=== PATIENT | male | born 1965 | race Hispanic/Latino ===

== ENCOUNTER 2021-11-18 06:44 | Day surgery (SDC) | payer BC ==
[2021-11-14 14:03] LABS: BASOPHILS % (AUTO) 0.9 % (0.0-5.0); EOSINOPHILS % (AUTO) 2.9 % (0.0-8.0); HEMATOCRIT 45.2 % (42-54); LYMPHOCYTES % (AUTO) 32.5 % (21.0-51.0); MEAN CORPUSCULAR HEMOGLOBIN 29.8 pg (27.0-33.0); MEAN CORPUSCULAR HGB CONC 33.2 g/dL (32.0-36.0); MEAN CORPUSCULAR VOLUME 89.7 fL (79-99); MONOCYTES % (AUTO) 7.4 % (3.0-13.0); NEUTROPHILS % (AUTO) 55.9 % (40.0-77.0); PLATELET COUNT (AUTO) 273 K/uL (130-400); RED BLOOD CELL COUNT(AUTO) 5.04 MIL/uL (4.50-6.20); WHITE BLOOD COUNT (AUTO) 7.5 K/uL (4.8-10.8)
[2021-11-14 14:08] LABS: CREATININE 0.9 mg/dL (0.5-1.5); POTASSIUM 3.7 mmol/L (3.5-5.1)
[2021-11-14 14:09] LABS: APPEARANCE,URINE CLEAR (CLEAR); BILIRUBIN,URINE NEGATIVE (NEGATIVE); COLOR,URINE YELLOW (YELLOW); GLUCOSE, URINE (UA) >=1000 mg/dL (NEGATIVE); KETONES,URINE 15 mg/dL (NEGATIVE); LEUKOCYTE ESTERASE ,URINE NEGATIVE (NEGATIVE); NITRATE,URINE NEGATIVE (NEGATIVE); OCCULT BLOOD,URINE NEGATIVE (NEGATIVE); PROTEIN,URINE NEGATIVE (NEGATIVE); UROBILINOGEN,URINE 0.2 mg/dL (0.2-1.0)
[2021-11-14 14:14] LABS: INR 0.94 (0.85-1.15); PROTHROMBIN TIME 10.3 SEC (9.6-11.6)
[2021-11-14 14:16] LABS: PARTIAL THROMBOPLASTIN TIME 25.9 SEC (26.3-35.5)
[2021-11-14 14:33] LABS: BACTERIA,URINE Rare /HPF (None Seen); RBC,URINE 0-1 /HPF (0-1); WBC,URINE 0-1 /HPF (0-1)
[2021-11-14 14:34] LABS: SQUAMOUS EPITHELIAL CELL,UR Rare /HPF (0-2)
[2021-11-14 14:40] LABS: B-TYPE NATRIURETIC PEPTIDE < 5 pg/mL (0-100)
[2021-11-15 11:52] VITALS: BP 141/77
[2021-11-18] VITALS (8 sets, daily range): BP systolic 126–173; BP diastolic 81–90
[~2021-11-18] VITALS: Ht 172.7 cm; Wt 121.8 kg
[~2021-11-18 06:44] MED LIST: 0.9% NACL 500ML IV.SOLN 500 ML IV SCH; ASPI-1197 PO; CARV6.25 PO; CLOP75TA32 PO; DAPA10TA PO; DULA1.5P SQ; EZET10TA13 PO; HYDR25TA PO; ICOS1CAP PO; INSU100V12 SQ; LOSA100T58 PO; MELO-106 PO; METF-527 PO; MULT-1367 PO; NITR0.4T50 SL; OMEP40CA21 PO; ROSU20TA31 PO; SEMA3TAB4 PO
[2021-11-18] MEDS ORDERED: 0.9%NACL 1000ML 1,000 ML IV ONE (07:39)
[2021-11-18] MEDS ORDERED: NITROGLYCERIN 50MG VIAL ONE ×2 (09:47→11:04)
[2021-11-18] MEDS ORDERED: IOHEXOL 350 MG/ML 100ML INFUS..BTL IV ONE ×2 (09:47→11:04)
[2021-11-18] MEDS ORDERED: HEPARIN 10,000 UNIT/10ML (1,000 UNIT/ML) VIAL ONE ×2 (09:47→11:04)
[2021-11-18] MEDS ORDERED: SODIUM BICARB 50MEQ 50ML VIAL 50 ML ONE (09:47)
[2021-11-18] MEDS ORDERED: BIVALIRUDIN 250 MG/VIAL IV ONE (09:47)
[2021-11-18] MEDS ORDERED: IOHEXOL-350 50ML VIAL IV ONE ×2 (09:47→11:04)
[2021-11-18] MEDS ORDERED: MIDAZOLAM HCL 1 MG/ML 2ML VIAL ONE ×2 (09:48→11:04)
[2021-11-18] MEDS ORDERED: LIDOCAINE HCL 400MG/20ML VIAL ONE ×2 (09:48→11:05)
[2021-11-18] MEDS ORDERED: FENTANYL CITRATE PF 50 MCG/1 ML 2ML VIAL ONE ×2 (09:49→11:04)
[2021-11-18] MEDS ORDERED: NICARDIPINE 25MG INJ IV ONE ×2 (09:55→11:04)
[2021-11-18] MEDS ORDERED: 0.9% NACL 500ML IV.SOLN 500 ML IV SCH (11:00)
== END 2021-11-18 13:59 | disposition home or self-care (01) ==
LOC: DAH 06:44
PROVIDERS: ATTEND Internal Medicine Cardiovascular Disease
DX: I25.119 Atherosclerotic heart disease of native coronary artery with unspecified angina pectoris (principal); I10 Essential (primary) hypertension; K21.9 Gastro-esophageal reflux disease without esophagitis; K76.0 Fatty (change of) liver, not elsewhere classified; E78.2 Mixed hyperlipidemia; E11.59 Type 2 diabetes mellitus with other circulatory complications; E66.9 Obesity, unspecified; Z79.01 Long term (current) use of anticoagulants; Z79.899 Other long term (current) drug therapy; Z95.5 Presence of coronary angioplasty implant and graft; Z68.41 Body mass index [BMI] 40.0-44.9, adult; Z82.49 Family history of ischemic heart disease and other diseases of the circulatory system; Z90.49 Acquired absence of other specified parts of digestive tract; Z98.890 Other specified postprocedural states; Z87.891 Personal history of nicotine dependence; Z72.89 Other problems related to lifestyle
CPT/HCPCS: 36415; 71045; 80048; 81001; 82948; 83880; 85025; 85610; 85730; 93005; 93454; A4215; A4216; A4221; A4222; A4223 ×3; A4606; A4663; C1769; C1894; J1644 ×3; J2250; J3010; J3490 ×5; J7030; Q9965; Q9967; 99156; 99157; J0583